=== PATIENT | female | born 2000 | race Caucasian/White ===

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

== ENCOUNTER 2020-06-27 23:16 | Inpatient (IN) | payer MEDICAID ==
[~2020-06-27] VITALS: Ht 160 cm; Wt 75.0 kg
[2020-06-28 00:27] LABS: MEAN CORPUSCULAR HEMOGLOBIN 28.3 pg (27.0-34.8); MEAN CORPUSCULAR HGB CONC 32.7 g/dL (32.4-35.8); MEAN PLATELET VOLUME 7.9 fL (7.4-10.4); PLATELET COUNT 329 x10^3/uL (130-400); RED BLOOD COUNT 4.34 x10^6/uL (3.82-5.3)
[2020-06-28] MEDS: LACTATED RINGERS 1,000 ML IV SCH ×5 (00:35→18:00)
[2020-06-28] MEDS ORDERED: FENTANYL PF 100 MCG/2ML ONE (00:54)
[2020-06-28 00:56] LABS: MICROSCOPIC INDICATED
[2020-06-28 00:59] LABS: MD YES
[2020-06-28] MEDS ORDERED: METOCLOPRAMIDE 5 MG/ML, 2ML IVPush PRN (01:00)
[2020-06-28] MEDS ORDERED: OXYTOCIN 30U/ 0.9% NaCL 500ML 500 ML IV ONE (01:00)
[2020-06-28] MEDS ORDERED: ONDANSETRON 2MG/ML, 2ML IVPush PRN (01:00)
[2020-06-28] MEDS ORDERED: TERBUTALINE 1 MG/ML, 1ML SQ PRN (01:00)
[2020-06-28] MEDS ORDERED: D5%-LACTATED RINGERS 1,000 ML IV SCH (01:00)
[2020-06-28] MEDS ORDERED: SODIUM CITRATE/CITRIC ACID 30 ML UDC PO PRN (01:00)
[2020-06-28] MEDS ORDERED: PENICILLIN GK 5,000,000 UNITS in DEXTROSE 5% 100 ML IVPB ONE (01:00)
[2020-06-28] MEDS ORDERED: TERBUTALINE 1 MG/ML, 1ML IVPush PRN (01:00)
[2020-06-28] MEDS ORDERED: FENTANYL PF 100 MCG/2ML IV PRN (01:00)
[2020-06-28] MEDS ORDERED: FENTANYL PF 100 MCG/2ML IVPush PRN (01:00)
[2020-06-28] MEDS ORDERED: OXYTOCIN 30U/ 0.9% NaCL 500ML 500 ML IV PRN (01:00)
[2020-06-28 01:01] LABS: AMPHETAMINE SCREEN, URINE Negative (Negative); BARBITURATE SCREEN, URINE Negative (Negative); BENZODIAZEPINE SCREEN, URINE Negative (Negative); CANNABINOID SCREEN, URINE Negative (Negative); COCAINE SCREEN, URINE Negative (Negative); METHADONE SCREEN, URINE Negative (Negative); OPIATE SCREEN, URINE Negative (Negative)
[2020-06-28] MEDS ORDERED: OXYTOCIN 30U/ 0.9% NaCL 500ML 500 ML ONE (01:13)
[2020-06-28] MEDS ORDERED: FENTANYL/BUPIV./NS/PF 250 ML EPIDCONT ONE (01:19)
[2020-06-28] MEDS ORDERED: BUPIVACAINE 0.25% ONE (01:22)
[2020-06-28 01:26] LABS: <PLATELET ESTIMATE> ADEQUATE; <PLT MORPHOLOGY> NORMAL PLT MORPH; <RBC MORPHOLOGY> NORMAL; BAND#(MANUAL) 2.73 x10^3/uL; BANDS%(MANUAL) 14 % (0-7); LYMPH#(MANUAL) 1.37 x10^3/uL (1-6.1); LYMPHS% (MANUAL) 7 % (22-44); MONOS#(MANUAL) 1.76 x10^3/uL (0.3-2.7); MONOS% (MANUAL) 9 % (2-9); MYELOCYTES% (MANUAL) 1 % (0-0); SEG#(MANUAL) 13.46 x10^3/uL (1.8-8); SEGS% (MANUAL) 69 % (42-75)
[2020-06-28] MEDS ORDERED: LACTATED RINGERS 1,000 ML IVBOLUS PRN (02:00)
[2020-06-28] MEDS ORDERED: FENTANYL/BUPIV./NS/PF 250 ML EPIDCONT SCH (02:00)
[2020-06-28] MEDS: PENICILLIN GK 2,500,000 UNITS in DEXTROSE 5% 100 ML IVPB SCH ×2 (04:58→09:04)
[2020-06-28] MEDS ORDERED: LIDOCAINE/MPF 2%-EPI 1:200K, 20 ML ONE (07:15)
[2020-06-28] MEDS ORDERED: EPHEDRINE 50 MG/ML, 1ML ONE (07:24)
[2020-06-28] MEDS: EPHEDRINE 50 MG/ML, 1ML IVPush PRN ×3 (08:00→08:02)
[2020-06-28] MEDS ORDERED: NEWBORN KIT ONE (10:35)
[2020-06-28] MEDS ORDERED: OXYcodone/APAP 5/325MG TABLET PO PRN ×2 (11:00)
[2020-06-28] MEDS ORDERED: CARBOPROST TROMETHAMINE 250 MCG/ML, 1ML IM PRN (11:00)
[2020-06-28] MEDS ORDERED: METHYLERGONOVINE 0.2 MG/ML IM PRN (11:00)
[2020-06-28] MEDS ORDERED: BISACODYL 10 MG SUPP PR PRN (11:00)
[2020-06-28] MEDS ORDERED: ONDANSETRON 2MG/ML, 2ML IV PRN (11:00)
[2020-06-28] MEDS ORDERED: SIMETHICONE 80 MG CHEW TAB PO PRN (11:00)
[2020-06-28] MEDS ORDERED: MAGNESIUM HYDROXIDE 8%, 30ML UDC PO PRN (11:00)
[2020-06-28] MEDS ORDERED: DIPH,PERTUSS(ACELL),TET VAC/PF NC IM-VACC PRN (11:00)
[2020-06-28] MEDS ORDERED: GLYCERIN ADULT SUPP PR PRN (11:00)
[2020-06-28] MEDS ORDERED: MEASLES,MUMPS&RUBELLA VACC/PF 0.5 ML SQ-VACC PRN (11:00)
[2020-06-28] MEDS ORDERED: OXYTOCIN 30U/ 0.9% NaCL 500ML 500 ML IV SCH (11:00)
[2020-06-28] MEDS ORDERED: METOCLOPRAMIDE 5 MG/ML, 2ML IV PRN (11:00)
[2020-06-28] MEDS ORDERED: MISOPROSTOL 200 MCG TABLET PR PRN (11:00)
[2020-06-28] MEDS ORDERED: ACETAMINOPHEN 325 MG TABLET PO PRN ×2 (11:00)
[2020-06-28 13:00] VITALS: BP 119/74
[2020-06-28] MEDS: IBUPROFEN 600 MG TABLET PO PRN (15:20)
[2020-06-28 16:30] VITALS: BP 101/62
[2020-06-28 17:57] LABS: BASOPHILS % (AUTO) 0 % (0-1); EOSINOPHILS % (AUTO) 0 % (1-7); LYMPHOCYTES % (AUTO) 6 % (22-44); MEAN CORPUSCULAR HEMOGLOBIN 28.1 pg (27.0-34.8); MEAN CORPUSCULAR HGB CONC 32.4 g/dL (32.4-35.8); MEAN PLATELET VOLUME 8.2 fL (7.4-10.4); MONOCYTES % (AUTO) 7 % (2-9); NEUTROPHILS % (AUTO) 86 % (42-75); PLATELET COUNT 319 x10^3/uL (130-400); RED BLOOD COUNT 4.18 x10^6/uL (3.82-5.3); RED CELL DISTRIBUTION WIDTH 16.4 % (9.6-15.2)
[2020-06-28 17:58] LABS: MD NO
[2020-06-28 19:40] VITALS: BP 101/58
[2020-06-29 00:05] VITALS: BP 105/66
[2020-06-29 04:07] VITALS: BP 116/68
[2020-06-29 07:50] VITALS: BP 97/61
[2020-06-29] MEDS: DOCUSATE 100 MG CAPSULE PO PRN ×2 (07:56→20:51)
[2020-06-29] MEDS: IBUPROFEN 600 MG TABLET PO PRN ×3 (07:56→20:51)
[2020-06-29] MEDS ORDERED: PRENATAL VIT/IRON/FA 1 EACH TABLET PO SCH (09:00)
[2020-06-29 12:12] VITALS: BP 100/59
[2020-06-29 19:55] VITALS: BP 108/70
[2020-06-30] MEDS: IBUPROFEN 600 MG TABLET PO PRN ×2 (06:27→12:26)
[2020-06-30 08:10] VITALS: BP 103/66
== END 2020-06-30 14:50 | disposition home or self-care (01) | DRG 807 ==
LOC: LDOP 23:16 → LDIP 06-28 00:34 → 2NW 06-28 12:43
PROVIDERS: ADMIT Obstetrics & Gynecology; ATTEND Obstetrics & Gynecology
PROC: 10E0XZZ Delivery of Products of Conception, External Approach (ICD-10-PCS; principal; 2020-06-28)
PROC: 0HQ9XZZ Repair Perineum Skin, External Approach (ICD-10-PCS; 2020-06-28)
PROC: 3E0R3BZ Introduction of Anesthetic Agent into Spinal Canal, Percutaneous Approach (ICD-10-PCS; 2020-06-28)
PROC: 00HU33Z Insertion of Infusion Device into Spinal Canal, Percutaneous Approach (ICD-10-PCS; 2020-06-28)
DX: O77.0 Labor and delivery complicated by meconium in amniotic fluid (principal); Z37.0 Single live birth; O70.0 First degree perineal laceration during delivery; O69.81X0 Labor and delivery complicated by cord around neck, without compression, not applicable or unspecified; O99.334 Smoking (tobacco) complicating childbirth; Z3A.38 38 weeks gestation of pregnancy; F17.200 Nicotine dependence, unspecified, uncomplicated; Z20.822 Contact with and (suspected) exposure to COVID-19
CPT/HCPCS: 36415; 76805; 80307; 81001; 85025; 86592; 86762; 86850; 86900; 87077; 87081; 87086; 87186; 87340; 87635; 87806; G0378; J2540; J3010; G0475; J2590; J7120